=== PATIENT | male | born 1960 | race Two or more races ===

== ENCOUNTER 2020-06-23 16:55 | Inpatient (IN) | payer MEDICAID, OTHER ==
[~2020-06-23] VITALS: Ht 162.6 cm; Wt 73.0 kg
--- NOTE | 2020-06-23 16:57 | NUR ---
PT BROUGHT IN BY [facility] FROM DIALYSIS DUE TO IRREGULAR HEART RATE AND CHEST TIGHTNESS DURING TREATMENT.
--- NOTE | 2020-06-23 17:07 | NUR ---
ERMD LAW AT BEDSIDE FOR EVAL
--- NOTE | 2020-06-23 17:39 | NUR ---
Pt resting in bed, call light in reach.
--- NOTE | 2020-06-23 17:58 | NUR ---
REPORT RECEIVED FROM RN
[2020-06-23 17:59] LABS: BASOPHILS # (AUTO) 0.02 x10^3/uL (0-0.1); BASOPHILS % (AUTO) 0 % (0-1); EOSINOPHILS # (AUTO) 0.36 x10^3/uL (0-0.4); EOSINOPHILS % (AUTO) 5 % (1-7); LYMPHOCYTES # (AUTO) 1.46 x10^3/uL (1-3.4); LYMPHOCYTES % (AUTO) 20 % (22-44); MD NO; MEAN CORPUSCULAR HEMOGLOBIN 31.9 pg (27.5-34.5); MEAN CORPUSCULAR HGB CONC 32.8 g/dL (33.2-36.2); MEAN PLATELET VOLUME 9.5 fL (7.4-10.4); MONOCYTES # (AUTO) 0.62 x10^3/uL (0.2-0.8); MONOCYTES % (AUTO) 8 % (2-9); NEUTROPHILS # (AUTO) 4.95 x10^3/uL (1.8-6.8); NEUTROPHILS % (AUTO) 67 % (42-75); PLATELET COUNT 239 x10^3/uL (130-400); RED BLOOD COUNT 3.26 x10^6/uL (4.38-5.82)
[2020-06-23 18:06] LABS: ALBUMIN 3.5 g/dL (3.4-5.0); ANION GAP 11 mmol/L (5-15); CALCIUM 8.8 mg/dL (8.5-10.1); CHLORIDE 100 mmol/L (98-107)
[2020-06-23 18:12] LABS: ALANINE AMINOTRANSFERASE 19 U/L (12-78); ALKALINE PHOSPHATASE 67 U/L (45-117); BILIRUBIN,TOTAL 0.4 mg/dL (0.2-1.0); TOTAL PROTEIN 6.6 g/dL (6.4-8.2); TROPONIN I < 0.015 ng/mL (0.000-0.045)
[2020-06-23] MEDS ORDERED: morphine SULFATE 10 MG/ML, 1ML IV PRN (19:30)
[2020-06-23] MEDS ORDERED: PLEASE ENTER ALLERGIES MC SCH (19:30)
[2020-06-23] MEDS ORDERED: NITROGLYCERIN 0.4 MG BOTTLE (25 TABS) SL PRN (19:30)
[2020-06-23 19:47] LABS: TROPONIN I 0.018 ng/mL (0.000-0.045)
[2020-06-23 20:14] VITALS: BP 170/90
[2020-06-23] MEDS ORDERED: OMEP10CA5 PO (20:19)
[2020-06-23] MEDS ORDERED: AMLO-150 PO (20:19)
[2020-06-23] MEDS ORDERED: ASPI81TA45 PO (20:19)
[2020-06-23] MEDS ORDERED: LOSA25TA25 PO (20:19)
[2020-06-23] MEDS ORDERED: ATOR20TA37 PO (20:19)
[2020-06-23] MEDS ORDERED: INSU100V8 SQ (20:23)
[2020-06-23] MEDS ORDERED: INSU100C SQ-INSULIN (20:23)
[2020-06-23] MEDS: ATORVASTATIN 20 MG TABLET PO SCH (21:52)
[2020-06-23] MEDS: LOSARTAN 25MG TABLET PO SCH (21:52)
[2020-06-23] MEDS: AMLODIPINE 5 MG TABLET PO SCH (21:52)
[2020-06-23] MEDS: INSULIN GLARGINE 100 UNITS/ML, PEN SQ-INSULIN SCH (21:53)
[2020-06-23] MEDS: INSULIN LISPRO 100 UNITS/ML, PEN SQ-INSULIN SCH (21:53)
[2020-06-24 00:29] VITALS: BP 164/86
[2020-06-24 01:29] LABS: TROPONIN I 0.017 ng/mL (0.000-0.045)
[2020-06-24] MEDS ORDERED: INSULIN LISPRO 100 UNIT/ML, 3ML VIAL SQ-INSULIN ONE (04:00)
[2020-06-24 04:22] LABS: BASOPHILS # (AUTO) 0.03 x10^3/uL (0-0.1); BASOPHILS % (AUTO) 1 % (0-1); EOSINOPHILS # (AUTO) 0.28 x10^3/uL (0-0.4); EOSINOPHILS % (AUTO) 4 % (1-7); LYMPHOCYTES % (AUTO) 21 % (22-44); MD NO; MEAN CORPUSCULAR HEMOGLOBIN 31.4 pg (27.5-34.5); MEAN CORPUSCULAR HGB CONC 32.1 g/dL (33.2-36.2); MEAN PLATELET VOLUME 9.6 fL (7.4-10.4); MONOCYTES # (AUTO) 0.53 x10^3/uL (0.2-0.8); MONOCYTES % (AUTO) 7 % (2-9); NEUTROPHILS % (AUTO) 68 % (42-75); PLATELET COUNT 237 x10^3/uL (130-400); RED CELL DISTRIBUTION WIDTH 14.2 % (9.4-14.8)
[2020-06-24 04:24] LABS: ANION GAP 12 mmol/L (5-15); CALCIUM 8.4 mg/dL (8.5-10.1); CHLORIDE 97 mmol/L (98-107)
[2020-06-24 04:29] LABS: CHOL/HDL RATIO 2.5; CHOLESTEROL, TOTAL 108 mg/dL (140-239); CREATININE 9.36 mg/dL (0.7-1.3); HDL CHOL % 40 % (26-37); HDL CHOLESTEROL (DIRECT) 43 mg/dL (40-60); LDL CHOLESTEROL,CALCULATED 41 mg/dL (54-169); TRIGLYCERIDES 122 mg/dL (50-200); VLDL CHOLESTEROL 24 mg/dL (0-25)
[2020-06-24] MEDS: ASPIRIN 81 MG TABLET EC PO SCH (05:16)
[2020-06-24] MEDS: OMEPRAZOLE 10 MG CAPSULE.DR PO SCH (05:16)
[2020-06-24] MEDS: LOSARTAN 25MG TABLET PO SCH ×2 (08:16→21:29)
[2020-06-24] MEDS: AMLODIPINE 5 MG TABLET PO SCH ×2 (08:16→21:29)
[2020-06-24] MEDS: INSULIN LISPRO 100 UNITS/ML, PEN SQ-INSULIN SCH ×4 (08:16→21:18)
[2020-06-24 08:25] VITALS: BP 165/86
[2020-06-24] MEDS: ARANESP 100 MCG/ML **ESRD SQ SCH (10:10)
[2020-06-24 14:05] VITALS: BP 129/73
[2020-06-24 19:47] VITALS: BP 176/90
[2020-06-24] MEDS ORDERED: AMLODIPINE 5 MG TABLET PO SCH (21:00)
[2020-06-24] MEDS ORDERED: INSULIN REGULAR 100 UNITS/ML, 3ML VIAL IVPush ONE (21:00)
[2020-06-24 21:16] LABS: ANION GAP 11 mmol/L (5-15); CALCIUM 8.3 mg/dL (8.5-10.1); CHLORIDE 95 mmol/L (98-107); CREATININE 6.67 mg/dL (0.7-1.3)
[2020-06-24 21:29] VITALS: BP 161/80
[2020-06-24] MEDS: INSULIN GLARGINE 100 UNITS/ML, PEN SQ-INSULIN SCH (21:29)
[2020-06-24] MEDS: ATORVASTATIN 20 MG TABLET PO SCH (21:29)
[2020-06-25] MEDS ORDERED: INSULIN INFUSION FOR ICU PROTOCOL XX PRN
[2020-06-25] MEDS ORDERED: SODIUM CHLORIDE 0.9%, 500ML IVBOLUS ONE
[2020-06-25] MEDS ORDERED: INSULIN REGULAR 100 UNITS/ML, 3ML VIAL IV ONE (00:30)
[2020-06-25] MEDS ORDERED: REGULAR INSULIN 100 UNITS in SODIUM CHLORIDE 0.9% 99 ML IV PRN ×2 (00:30)
[2020-06-25 01:52] LABS: ANION GAP 9 mmol/L (5-15); CALCIUM 8.2 mg/dL (8.5-10.1); CHLORIDE 95 mmol/L (98-107); CREATININE 7.37 mg/dL (0.7-1.3)
[2020-06-25] MEDS: OMEPRAZOLE 10 MG CAPSULE.DR PO SCH (06:00)
[2020-06-25] MEDS: ASPIRIN 81 MG TABLET EC PO SCH (06:37)
[2020-06-25] MEDS: INSULIN LISPRO 100 UNITS/ML, PEN SQ-INSULIN SCH ×6 (06:37→23:02)
[2020-06-25 06:46] LABS: BASOPHILS # (AUTO) 0.02 x10^3/uL (0-0.1); BASOPHILS % (AUTO) 0 % (0-1); EOSINOPHILS # (AUTO) 0.31 x10^3/uL (0-0.4); EOSINOPHILS % (AUTO) 5 % (1-7); LYMPHOCYTES # (AUTO) 1.27 x10^3/uL (1-3.4); LYMPHOCYTES % (AUTO) 21 % (22-44); MD NO; MEAN CORPUSCULAR HEMOGLOBIN 32.3 pg (27.5-34.5); MEAN CORPUSCULAR HGB CONC 33.7 g/dL (33.2-36.2); MEAN PLATELET VOLUME 9.2 fL (7.4-10.4); MONOCYTES # (AUTO) 0.68 x10^3/uL (0.2-0.8); MONOCYTES % (AUTO) 11 % (2-9); NEUTROPHILS # (AUTO) 3.86 x10^3/uL (1.8-6.8); NEUTROPHILS % (AUTO) 63 % (42-75); PLATELET COUNT 253 x10^3/uL (130-400); RED BLOOD COUNT 3.43 x10^6/uL (4.38-5.82); RED CELL DISTRIBUTION WIDTH 13.7 % (9.4-14.8)
[2020-06-25 06:59] LABS: ANION GAP 11 mmol/L (5-15); CALCIUM 9.1 mg/dL (8.5-10.1); CHLORIDE 104 mmol/L (98-107); CREATININE 7.83 mg/dL (0.7-1.3)
[2020-06-25] MEDS: AMLODIPINE 5 MG TABLET PO SCH ×2 (07:56→20:30)
[2020-06-25] MEDS: LOSARTAN 25MG TABLET PO SCH ×2 (07:56→20:30)
[2020-06-25] MEDS: SODIUM CHLORIDE 0.9% 1,000 ML IV SCH ×2 (07:58→18:07)
[2020-06-25 08:00] VITALS: BP 124/55
[2020-06-25 10:15] VITALS: BP 124/55
[2020-06-25 14:06] VITALS: BP 130/60
[2020-06-25 19:44] VITALS: BP 139/53
[2020-06-25] MEDS: ATORVASTATIN 20 MG TABLET PO SCH (20:30)
[2020-06-25] MEDS: INSULIN GLARGINE 100 UNITS/ML, PEN SQ-INSULIN SCH (20:35)
[2020-06-26 00:12] VITALS: BP 138/61
[2020-06-26] MEDS: INSULIN LISPRO 100 UNITS/ML, PEN SQ-INSULIN SCH ×5 (03:00→20:52)
[2020-06-26] MEDS: SODIUM CHLORIDE 0.9% 1,000 ML IV SCH (03:00)
[2020-06-26] MEDS: OMEPRAZOLE 10 MG CAPSULE.DR PO SCH (06:00)
[2020-06-26] MEDS: ASPIRIN 81 MG TABLET EC PO SCH (06:00)
[2020-06-26] MEDS: AMLODIPINE 5 MG TABLET PO SCH ×2 (07:45→20:53)
[2020-06-26] MEDS: LOSARTAN 25MG TABLET PO SCH ×2 (07:45→20:53)
[2020-06-26] MEDS: DEXTROSE 50%, 50ML SYRINGE IV PRN (08:09)
[2020-06-26] MEDS: INSULIN GLARGINE 100 UNITS/ML, PEN SQ-INSULIN SCH ×2 (08:11→20:53)
[2020-06-26 08:12] VITALS: BP 122/79
[2020-06-26] MEDS ORDERED: REGADENOSON 0.4 MG/5 ML SYRINGE ONE (08:53)
[2020-06-26 16:40] VITALS: BP 158/80
[2020-06-26 20:42] VITALS: BP 152/87
[2020-06-26] MEDS: ATORVASTATIN 20 MG TABLET PO SCH (20:53)
[2020-06-26] MEDS: ACETAMINOPHEN 325 MG TABLET PO PRN (21:18)
[2020-06-27 00:31] VITALS: BP 153/90
[2020-06-27] MEDS ORDERED: SODIUM CHLORIDE 0.9%, 500ML IVBOLUS ONE (01:00)
[2020-06-27] MEDS ORDERED: INSULIN LISPRO 100 UNIT/ML, 3ML VIAL SQ-INSULIN ONE ×3 (01:00→15:30)
[2020-06-27 01:23] LABS: ANION GAP 10 mmol/L (5-15); CALCIUM 8.4 mg/dL (8.5-10.1); CHLORIDE 95 mmol/L (98-107); CREATININE 6.32 mg/dL (0.7-1.3)
[2020-06-27 05:00] LABS: ANION GAP 7 mmol/L (5-15); CALCIUM 8.4 mg/dL (8.5-10.1); CHLORIDE 99 mmol/L (98-107)
[2020-06-27 05:03] LABS: CREATININE 6.61 mg/dL (0.7-1.3)
[2020-06-27] MEDS: OMEPRAZOLE 10 MG CAPSULE.DR PO SCH (06:14)
[2020-06-27] MEDS: ASPIRIN 81 MG TABLET EC PO SCH (06:14)
[2020-06-27 06:40] VITALS: BP 134/67
[2020-06-27] MEDS: INSULIN LISPRO 100 UNITS/ML, PEN SQ-INSULIN SCH ×2 (08:01→20:53)
[2020-06-27] MEDS: INSULIN GLARGINE 100 UNITS/ML, PEN SQ-INSULIN SCH (08:01)
[2020-06-27] MEDS: LOSARTAN 25MG TABLET PO SCH ×2 (08:02→20:48)
[2020-06-27] MEDS: AMLODIPINE 5 MG TABLET PO SCH ×2 (08:02→20:48)
[2020-06-27 12:06] VITALS: BP 160/78
[2020-06-27] MEDS ORDERED: INSULIN GLARGINE 100 UNITS/ML, PEN SQ-INSULIN ONE (13:00)
[2020-06-27] MEDS: SODIUM CHLORIDE 0.9% 1,000 ML IV SCH (13:14)
[2020-06-27] MEDS: INSULIN LISPRO 100 UNIT/ML, 3ML VIAL SQ-INSULIN SCH (15:16)
[2020-06-27] MEDS ORDERED: INSULIN LISPRO 100 UNITS/ML, PEN SQ-INSULIN SCH (15:30)
[2020-06-27 18:12] LABS: CALCIUM 7.9 mg/dL (8.5-10.1); CHLORIDE 94 mmol/L (98-107)
[2020-06-27 18:18] LABS: ANION GAP 9 mmol/L (5-15); CREATININE 7.92 mg/dL (0.7-1.3)
[2020-06-27 19:17] LABS: ANION GAP 8 mmol/L (5-15); CALCIUM 7.8 mg/dL (8.5-10.1); CHLORIDE 97 mmol/L (98-107); CREATININE 7.94 mg/dL (0.7-1.3)
[2020-06-27 20:06] VITALS: BP 169/78
[2020-06-27] MEDS: ATORVASTATIN 20 MG TABLET PO SCH (20:48)
[2020-06-27] MEDS ORDERED: SODIUM CHLORIDE 0.9% 1,000ML IVBOLUS ONE (21:00)
[2020-06-27] MEDS ORDERED: INSULIN GLARGINE 100 UNITS/ML, PEN SQ-INSULIN SCH ×2 (21:00)
[2020-06-27 21:48] VITALS: BP 181/79
[2020-06-27 22:31] VITALS: BP 183/88
[2020-06-28] MEDS: INSULIN LISPRO 100 UNITS/ML, PEN SQ-INSULIN SCH ×7 (00:02→23:00)
[2020-06-28 00:06] VITALS: BP 154/66
[2020-06-28] MEDS: SODIUM CHLORIDE 0.9% 1,000 ML IV SCH ×4 (00:16→23:11)
[2020-06-28 04:28] LABS: ANION GAP 12 mmol/L (5-15); CALCIUM 8.5 mg/dL (8.5-10.1); CHLORIDE 104 mmol/L (98-107); CREATININE 8.24 mg/dL (0.7-1.3)
[2020-06-28 05:06] LABS: BASOPHILS % (AUTO) 1 % (0-1); EOSINOPHILS % (AUTO) 4 % (1-7); LYMPHOCYTES % (AUTO) 37 % (22-44); MEAN CORPUSCULAR HEMOGLOBIN 31.8 pg (27.5-34.5); MEAN CORPUSCULAR HGB CONC 33.4 g/dL (33.2-36.2); MEAN PLATELET VOLUME 10.1 fL (7.4-10.4); MONOCYTES % (AUTO) 10 % (2-9); NEUTROPHILS % (AUTO) 49 % (42-75); PLATELET COUNT 229 x10^3/uL (130-400); RED BLOOD COUNT 3.15 x10^6/uL (4.38-5.82); RED CELL DISTRIBUTION WIDTH 13.7 % (9.4-14.8)
[2020-06-28 05:25] LABS: MD NO
[2020-06-28] MEDS: ASPIRIN 81 MG TABLET EC PO SCH (05:28)
[2020-06-28] MEDS: OMEPRAZOLE 10 MG CAPSULE.DR PO SCH (05:28)
[2020-06-28 06:36] VITALS: BP 118/83
[2020-06-28] MEDS: INSULIN LISPRO 100 UNIT/ML, 3ML VIAL SQ-INSULIN SCH ×3 (07:00→16:00)
[2020-06-28] MEDS ORDERED: INSULIN GLARGINE 100 UNITS/ML, PEN SQ-INSULIN SCH (09:00)
[2020-06-28] MEDS: AMLODIPINE 5 MG TABLET PO SCH ×2 (09:25→20:43)
[2020-06-28] MEDS: LOSARTAN 25MG TABLET PO SCH ×2 (09:25→20:43)
[2020-06-28 13:27] VITALS: BP 168/79
[2020-06-28 19:57] VITALS: BP 167/101
[2020-06-28] MEDS: ATORVASTATIN 20 MG TABLET PO SCH (20:43)
[2020-06-28] MEDS: INSULIN GLARGINE 100 UNITS/ML, PEN SQ-INSULIN SCH (20:44)
[2020-06-28 23:05] VITALS: BP 159/84
[2020-06-28] MEDS: ACETAMINOPHEN 325 MG TABLET PO PRN (23:07)
[2020-06-29] VITALS (7 sets, daily range): BP systolic 151–177; BP diastolic 67–94
[2020-06-29] MEDS: INSULIN LISPRO 100 UNITS/ML, PEN SQ-INSULIN SCH ×5 (03:00→22:16)
[2020-06-29] MEDS: ASPIRIN 81 MG TABLET EC PO SCH (06:14)
[2020-06-29] MEDS: OMEPRAZOLE 10 MG CAPSULE.DR PO SCH (06:14)
[2020-06-29] MEDS: SODIUM CHLORIDE 0.9% 1,000 ML IV SCH ×3 (06:15→20:45)
[2020-06-29] MEDS: INSULIN LISPRO 100 UNIT/ML, 3ML VIAL SQ-INSULIN SCH ×2 (07:00→11:00)
[2020-06-29] MEDS: AMLODIPINE 5 MG TABLET PO SCH ×2 (08:25→20:43)
[2020-06-29] MEDS: LOSARTAN 25MG TABLET PO SCH ×2 (08:25→20:43)
[2020-06-29] MEDS: ATORVASTATIN 20 MG TABLET PO SCH (20:43)
[2020-06-29] MEDS: INSULIN GLARGINE 100 UNITS/ML, PEN SQ-INSULIN SCH (22:16)
[2020-06-30 00:44] VITALS: BP 160/76
[2020-06-30] MEDS: INSULIN LISPRO 100 UNITS/ML, PEN SQ-INSULIN SCH ×6 (02:33→21:23)
[2020-06-30] MEDS: OMEPRAZOLE 10 MG CAPSULE.DR PO SCH (06:23)
[2020-06-30] MEDS: ASPIRIN 81 MG TABLET EC PO SCH (06:23)
[2020-06-30] MEDS: SODIUM CHLORIDE 0.9% 1,000 ML IV SCH ×2 (06:24→14:07)
[2020-06-30 07:03] VITALS: BP 134/78
[2020-06-30] MEDS ORDERED: INSULIN GLARGINE 100 UNITS/ML, PEN SQ-INSULIN SCH (09:00)
[2020-06-30 12:25] VITALS: BP 164/71
[2020-06-30] MEDS: LACTOBACILLUS CHEW TABLET PO SCH ×3 (12:43→21:21)
[2020-06-30] MEDS: LOSARTAN 25MG TABLET PO SCH ×2 (12:43→21:22)
[2020-06-30] MEDS: CARVEDILOL 6.25 MG TABLET PO SCH (18:00)
[2020-06-30 18:18] VITALS: BP 154/76
[2020-06-30 20:07] VITALS: BP 148/78
[2020-06-30] MEDS: ATORVASTATIN 20 MG TABLET PO SCH (21:22)
[2020-06-30] MEDS: INSULIN GLARGINE 100 UNITS/ML, PEN SQ-INSULIN SCH (21:23)
[2020-07-01] VITALS (7 sets, daily range): BP systolic 148–209; BP diastolic 66–101
[2020-07-01] MEDS: ACETAMINOPHEN 325 MG TABLET PO PRN ×2 (00:02→22:11)
[2020-07-01] MEDS: OMEPRAZOLE 10 MG CAPSULE.DR PO SCH (05:28)
[2020-07-01] MEDS: ASPIRIN 81 MG TABLET EC PO SCH (05:29)
[2020-07-01] MEDS: CARVEDILOL 6.25 MG TABLET PO SCH ×2 (05:29→17:32)
[2020-07-01 06:00] LABS: % IRON SATURATION 22 % (20-55); IRON LEVEL 51 mcg/dL (65-175); TOTAL IRON BINDING CAPACITY 228 mcg/dL (250-450)
[2020-07-01] MEDS: INSULIN LISPRO 100 UNITS/ML, PEN SQ-INSULIN SCH ×4 (07:00→21:50)
[2020-07-01] MEDS: ARANESP 100 MCG/ML **ESRD SQ SCH (08:38)
[2020-07-01] MEDS: LOSARTAN 25MG TABLET PO SCH ×2 (08:38→21:38)
[2020-07-01] MEDS: LACTOBACILLUS CHEW TABLET PO SCH ×3 (08:38→21:38)
[2020-07-01] MEDS ORDERED: NITROGLYCERIN 0.1 MG/HR PATCH TD PRN (17:00)
[2020-07-01] MEDS ORDERED: hydrALAzine 20 MG/ML, 1ML IV PRN (17:00)
[2020-07-01] MEDS: ISOSORBIDE DINITRATE 10 MG TABLET PO SCH ×2 (17:32→21:39)
[2020-07-01] MEDS: ATORVASTATIN 20 MG TABLET PO SCH (21:38)
[2020-07-02 02:07] VITALS: BP 155/74
[2020-07-02] MEDS: OMEPRAZOLE 10 MG CAPSULE.DR PO SCH (06:00)
[2020-07-02] MEDS: ASPIRIN 81 MG TABLET EC PO SCH (06:00)
[2020-07-02] MEDS: CARVEDILOL 6.25 MG TABLET PO SCH ×2 (06:03→17:55)
[2020-07-02] MEDS: INSULIN LISPRO 100 UNITS/ML, PEN SQ-INSULIN SCH ×4 (07:00→21:27)
[2020-07-02] MEDS: LACTOBACILLUS CHEW TABLET PO SCH ×3 (08:42→20:57)
[2020-07-02] MEDS: ISOSORBIDE DINITRATE 10 MG TABLET PO SCH ×3 (08:42→20:58)
[2020-07-02] MEDS: LOSARTAN 25MG TABLET PO SCH ×2 (08:42→20:58)
[2020-07-02 08:46] VITALS: BP 163/82
[2020-07-02] MEDS ORDERED: INSULIN GLARGINE 100 UNITS/ML, PEN SQ-INSULIN SCH (09:00)
[2020-07-02] MEDS: INSULIN NPH HUMAN 100 UNIT/ML, 3ML VIAL SQ-INSULIN SCH (09:00)
[2020-07-02] MEDS: ACETAMINOPHEN 325 MG TABLET PO PRN (09:22)
[2020-07-02] MEDS ORDERED: BUPIVACAINE/PF 0.5% ONE (09:28)
[2020-07-02] MEDS ORDERED: HEPARIN 1,000 UNITS/ML, 10ML ONE (09:28)
[2020-07-02] MEDS ORDERED: EPINEPHRINE 1 MG/ML, 1ML ONE (09:28)
[2020-07-02] MEDS ORDERED: PROTAMINE SULFATE 10 MG/ML, 5ML ONE (09:28)
[2020-07-02] MEDS ORDERED: THROMBIN 20,000 UNIT VIAL TP ONE (09:28)
[2020-07-02] MEDS ORDERED: EPHEDRINE 50 MG/ML, 1ML ONE (09:51)
[2020-07-02] MEDS ORDERED: ONDANSETRON 2MG/ML, 2ML ONE (09:51)
[2020-07-02] MEDS ORDERED: PROPOFOL 10 MG/ML, 20ML ONE (09:51)
[2020-07-02] MEDS ORDERED: CEFAZOLIN 1,000 MG ONE (09:51)
[2020-07-02] MEDS ORDERED: SUCCINYLCHOLINE 20 MG/ML, 10ML ONE (09:51)
[2020-07-02] MEDS ORDERED: FENTANYL PF 250 MCG/5ML ONE (09:58)
[2020-07-02] MEDS ORDERED: BUPIVACAINE/PF-EPI 0.5% 1:200K IM ONE (10:22)
[2020-07-02] MEDS ORDERED: FENTANYL PF 100 MCG/2ML IV PRN (11:30)
[2020-07-02] MEDS ORDERED: OXYcodone 5 MG/5 ML ORAL.SOL UDC PO PRN (11:30)
[2020-07-02] MEDS ORDERED: EPHEDRINE 50 MG/ML, 1ML IVPush PRN (11:30)
[2020-07-02] MEDS ORDERED: hydrALAzine 20 MG/ML, 1ML IV PRN (11:30)
[2020-07-02] MEDS ORDERED: ONDANSETRON 2MG/ML, 2ML IVPush PRN (11:30)
[2020-07-02] MEDS ORDERED: HYDROmorphone 1 MG/ML, 1ML INJ IVPush PRN (11:30)
[2020-07-02] MEDS ORDERED: PROMETHAZINE 25 MG SUPP PR PRN (11:30)
[2020-07-02] MEDS ORDERED: ACETAMINOPHEN 325 MG TABLET PO PRN (11:30)
[2020-07-02 12:00] VITALS: BP 173/85
[2020-07-02] MEDS: OXYcodone IR 5MG TABLET PO PRN (15:37)
[2020-07-02 15:38] VITALS: BP 167/81
[2020-07-02 20:52] VITALS: BP 178/82
[2020-07-02] MEDS: ATORVASTATIN 20 MG TABLET PO SCH (20:57)
[2020-07-02 23:49] VITALS: BP 187/84
[2020-07-03 02:50] VITALS: BP 175/80
[2020-07-03] MEDS ORDERED: LABETALOL 5MG/ML, 20ML IVPush PRN (03:30)
[2020-07-03 05:37] VITALS: BP 186/82
[2020-07-03] MEDS: CARVEDILOL 6.25 MG TABLET PO SCH ×2 (05:39→21:10)
[2020-07-03] MEDS: ASPIRIN 81 MG TABLET EC PO SCH (05:39)
[2020-07-03] MEDS: OMEPRAZOLE 10 MG CAPSULE.DR PO SCH (05:39)
[2020-07-03] MEDS: OXYcodone IR 5MG TABLET PO PRN (05:39)
[2020-07-03 05:53] LABS: ANION GAP 12 mmol/L (5-15); CALCIUM 8.4 mg/dL (8.5-10.1); CHLORIDE 101 mmol/L (98-107)
[2020-07-03 07:08] VITALS: BP 174/86
[2020-07-03] MEDS: INSULIN NPH HUMAN 100 UNIT/ML, 3ML VIAL SQ-INSULIN SCH (08:44)
[2020-07-03] MEDS: LOSARTAN 25MG TABLET PO SCH ×2 (08:45→21:11)
[2020-07-03] MEDS: LACTOBACILLUS CHEW TABLET PO SCH ×3 (08:45→21:11)
[2020-07-03] MEDS: ISOSORBIDE DINITRATE 20 MG TABLET PO SCH ×3 (09:00→21:11)
[2020-07-03] MEDS ORDERED: ISOSORBIDE DINITRATE 10 MG TABLET PO SCH (09:00)
[2020-07-03] MEDS: HEPARIN 5,000 UNITS/ML, 1ML SQ SCH ×2 (09:03→17:37)
[2020-07-03] MEDS: ACETAMINOPHEN 325 MG TABLET PO PRN (09:54)
[2020-07-03] MEDS ORDERED: INSULIN LISPRO 100 UNITS/ML, PEN SQ-INSULIN SCH (11:00)
[2020-07-03] MEDS: INSULIN LISPRO 100 UNITS/ML, PEN SQ-INSULIN SCH ×3 (11:25→21:22)
[2020-07-03 12:04] VITALS: BP 156/72
[2020-07-03 20:12] VITALS: BP 191/97
[2020-07-03] MEDS: ATORVASTATIN 20 MG TABLET PO SCH (21:10)
[2020-07-04 00:29] VITALS: BP 179/93
[2020-07-04] MEDS: OXYcodone IR 5MG TABLET PO PRN (00:32)
[2020-07-04 01:44] VITALS: BP 155/72
[2020-07-04] MEDS: HEPARIN 5,000 UNITS/ML, 1ML SQ SCH ×3 (01:44→18:05)
[2020-07-04 06:28] LABS: BASOPHILS % (AUTO) 1 % (0-1); EOSINOPHILS % (AUTO) 2 % (1-7); LYMPHOCYTES % (AUTO) 21 % (22-44); MEAN CORPUSCULAR HEMOGLOBIN 32.6 pg (27.5-34.5); MEAN CORPUSCULAR HGB CONC 33.6 g/dL (33.2-36.2); MEAN PLATELET VOLUME 9.5 fL (7.4-10.4); MONOCYTES % (AUTO) 11 % (2-9); NEUTROPHILS % (AUTO) 66 % (42-75); PLATELET COUNT 207 x10^3/uL (130-400); RED BLOOD COUNT 2.93 x10^6/uL (4.38-5.82); RED CELL DISTRIBUTION WIDTH 14.8 % (9.4-14.8)
[2020-07-04 06:35] LABS: ANION GAP 9 mmol/L (5-15); CALCIUM 8.2 mg/dL (8.5-10.1); CHLORIDE 98 mmol/L (98-107); CREATININE 6.41 mg/dL (0.7-1.3)
[2020-07-04 06:39] LABS: MD NO
[2020-07-04] MEDS: OMEPRAZOLE 10 MG CAPSULE.DR PO SCH (06:42)
[2020-07-04] MEDS: ASPIRIN 81 MG TABLET EC PO SCH (06:42)
[2020-07-04] MEDS: CARVEDILOL 6.25 MG TABLET PO SCH (06:42)
[2020-07-04] MEDS: INSULIN LISPRO 100 UNITS/ML, PEN SQ-INSULIN SCH ×4 (06:55→20:39)
[2020-07-04 07:00] VITALS: BP 176/87
[2020-07-04] MEDS: LACTOBACILLUS CHEW TABLET PO SCH ×3 (08:32→20:37)
[2020-07-04] MEDS: LOSARTAN 25MG TABLET PO SCH ×2 (08:32→20:38)
[2020-07-04] MEDS: ISOSORBIDE DINITRATE 20 MG TABLET PO SCH ×3 (08:32→20:37)
[2020-07-04] MEDS: INSULIN NPH HUMAN 100 UNIT/ML, 3ML VIAL SQ-INSULIN SCH (08:33)
[2020-07-04] MEDS: DOCUSATE 100 MG CAPSULE PO PRN (08:37)
[2020-07-04] MEDS ORDERED: INSULIN NPH HUMAN 100 UNIT/ML, 3ML VIAL SQ-INSULIN SCH (09:00)
[2020-07-04 10:00] VITALS: BP 140/75
[2020-07-04] MEDS: AMLODIPINE 5 MG TABLET PO SCH (11:04)
[2020-07-04 13:20] VITALS: BP 147/68
[2020-07-04] MEDS: DEXTROSE 50%, 50ML SYRINGE IV PRN ×2 (17:43→18:06)
[2020-07-04] MEDS: CARVEDILOL 12.5 MG TABLET PO SCH (18:04)
[2020-07-04] MEDS: ACETAMINOPHEN 325 MG TABLET PO PRN (18:04)
[2020-07-04] MEDS ORDERED: GLUCAGON 1 MG IM PRN (19:00)
[2020-07-04] MEDS ORDERED: DEXTROSE 4 GM TAB.CHEW PO PRN (19:00)
[2020-07-04 20:32] VITALS: BP 155/88
[2020-07-04] MEDS: ATORVASTATIN 20 MG TABLET PO SCH (20:37)
[2020-07-04] MEDS: SODIUM CHLORIDE FLUSH 10ML SYR IVF SCH (20:40)
[2020-07-04] MEDS ORDERED: ONDANSETRON 4 MG TABLET PO PRN (22:30)
[2020-07-04] MEDS ORDERED: ONDANSETRON ODT 4 MG ONE (22:39)
[2020-07-05] MEDS: HEPARIN 5,000 UNITS/ML, 1ML SQ SCH ×3 (02:00→17:54)
[2020-07-05 02:55] VITALS: BP 157/77
[2020-07-05] MEDS: ASPIRIN 81 MG TABLET EC PO SCH (06:23)
[2020-07-05] MEDS: CARVEDILOL 12.5 MG TABLET PO SCH ×2 (06:23→17:54)
[2020-07-05] MEDS: OMEPRAZOLE 10 MG CAPSULE.DR PO SCH (06:23)
[2020-07-05 06:24] VITALS: BP 161/80
[2020-07-05 07:36] VITALS: BP 147/74
[2020-07-05] MEDS: SODIUM CHLORIDE FLUSH 10ML SYR IVF SCH (08:25)
[2020-07-05] MEDS: ISOSORBIDE DINITRATE 20 MG TABLET PO SCH ×2 (08:25→16:00)
[2020-07-05] MEDS: INSULIN LISPRO 100 UNITS/ML, PEN SQ-INSULIN SCH ×3 (08:25→16:24)
[2020-07-05] MEDS: LACTOBACILLUS CHEW TABLET PO SCH ×2 (08:25→16:00)
[2020-07-05] MEDS: LOSARTAN 25MG TABLET PO SCH (08:26)
[2020-07-05] MEDS: AMLODIPINE 5 MG TABLET PO SCH (08:26)
[2020-07-05] MEDS: DOCUSATE 100 MG CAPSULE PO PRN ×2 (08:58→13:34)
[2020-07-05] MEDS ORDERED: INSULIN NPH HUMAN 100 UNIT/ML, 3ML VIAL SQ-INSULIN SCH (09:00)
[2020-07-05 13:37] VITALS: BP 185/89
[2020-07-05 15:35] VITALS: BP 149/84
[2020-07-05] MEDS: ACETAMINOPHEN 325 MG TABLET PO PRN (16:28)
[2020-07-05] MEDS ORDERED: ISOS20TA58 PO (17:40)
[2020-07-05] MEDS ORDERED: CARV12.52 PO (17:40)
== END 2020-07-05 18:31 | disposition home or self-care (01) | DRG 405 ==
LOC: ED 19:34 → EDIP 19:49 → 5SO 20:08 → CCU 06-25 01:17 → 5SO 06-26 07:56 → OBSVTOIN 06-26 15:52 → 3N 06-27 23:16 → 5SO 06-29 04:15
PROVIDERS: ADMIT Family Medicine; ATTEND Family Medicine
PROC: 5A1D70Z Performance of Urinary Filtration, Intermittent, Less than 6 Hours Per Day (ICD-10-PCS; 2020-06-24)
PROC: 5A1D70Z Performance of Urinary Filtration, Intermittent, Less than 6 Hours Per Day (ICD-10-PCS; 2020-06-26)
PROC: 5A1D70Z Performance of Urinary Filtration, Intermittent, Less than 6 Hours Per Day (ICD-10-PCS; 2020-06-28)
PROC: 03170ZD Bypass Right Brachial Artery to Upper Arm Vein, Open Approach (ICD-10-PCS; principal; 2020-07-02 11:00)
DX: E11.00 Type 2 diabetes mellitus with hyperosmolarity without nonketotic hyperglycemic-hyperosmolar coma (NKHHC) (principal); E11.649 Type 2 diabetes mellitus with hypoglycemia without coma; E11.22 Type 2 diabetes mellitus with diabetic chronic kidney disease; N18.6 End stage renal disease; I12.0 Hypertensive chronic kidney disease with stage 5 chronic kidney disease or end stage renal disease; G47.00 Insomnia, unspecified; E87.5 Hyperkalemia; E87.1 Hypo-osmolality and hyponatremia; D63.1 Anemia in chronic kidney disease; Z99.2 Dependence on renal dialysis; Z79.4 Long term (current) use of insulin; Z79.899 Other long term (current) drug therapy
CPT/HCPCS: 36415; 71045; 78452; 80048; 80053; 80061; 82947; 82950; 82962; 83036; 83540; 83550; 83735; 84484; 85025; 86705; 86706; 87081; 87340; 87635; 90935; 93005; 93017; 93306; 96372; 99285; G0378; J0171; J0690; J0882; J1644; J1815; J2405; J2704; J2720; J2785; J3010; Q0162; A9502; G0365; J0330; J7030; J7040

== ENCOUNTER 2020-07-13 11:59 | Emergency (ER) | payer MEDICAID ==
[~2020-07-13] VITALS: Ht 162.6 cm; Wt 64.8 kg
[~2020-07-13 11:59] MED LIST: AMLO-150 PO; ASPI81TA45 PO; ATOR20TA37 PO; CARV12.52 PO; INSU100C SQ-INSULIN; INSU100V8 SQ; ISOS20TA58 PO; LOSA25TA25 PO; OMEP10CA5 PO
[2020-07-13 12:50] LABS: BASOPHILS % (AUTO) 1 % (0-1); EOSINOPHILS % (AUTO) 2 % (1-7); LYMPHOCYTES % (AUTO) 23 % (22-44); MEAN CORPUSCULAR HEMOGLOBIN 31.9 pg (27.5-34.5); MEAN CORPUSCULAR HGB CONC 32.4 g/dL (33.2-36.2); MEAN PLATELET VOLUME 9.6 fL (7.4-10.4); MONOCYTES % (AUTO) 11 % (2-9); NEUTROPHILS % (AUTO) 63 % (42-75); PLATELET COUNT 281 x10^3/uL (130-400); RED BLOOD COUNT 3.82 x10^6/uL (4.38-5.82); RED CELL DISTRIBUTION WIDTH 15.2 % (9.4-14.8)
[2020-07-13 12:55] LABS: ANION GAP 11 mmol/L (5-15); CALCIUM 9.3 mg/dL (8.5-10.1); CHLORIDE 102 mmol/L (98-107); CREATININE 6.94 mg/dL (0.7-1.3)
[2020-07-13 12:56] LABS: ALBUMIN 3.6 g/dL (3.4-5.0)
--- NOTE | 2020-07-13 12:56 | NUR ---
FURNACE MAINTENANCE: PT TO ROOM FROM [facility] PAST[facility]
[2020-07-13 13:02] LABS: MD NO
--- NOTE | 2020-07-13 13:07 | NUR ---
PATIENT WALKED BACK FROM TRIAGE WITH CHIEF C/O SWELLING AND DISCOLORATION AT LEFT LOWER ARM FISTUAL SITE. PATIENT STATES FISTULA WAS PLACED ABOUT 2 WEEKS AGO, AND SLITTER SCORER CUT OFF OPERATOR TOLD PATIENT FRIDAY THE THAT FISTUAL SEEMS TO BE "CLOTTED." PATIENT C/O OF 2/10 PAIN AT FISTUAL SITE. CONNECTED TO VITAL MACHINE, NO SIGNS OF ACUTE DISTRESS, CALL LIGHT WITHIN REACH.
--- NOTE | 2020-07-13 14:49 | NUR ---
PT TO BE CONSULTED BY VASCULAR. FISTULA IS CLOTTED
[2020-07-13 14:59] VITALS: BP 180/85
--- NOTE | 2020-07-13 15:40 | NUR ---
Patient/Caregiver given discharge instructions and they have confirmed that they understand the instructions. Patient ambulatory with steady gait.
== END 2020-07-13 15:42 | disposition home or self-care (01) ==
LOC: ED 13:56
DX: N18.6 End stage renal disease (principal); N28.0 Ischemia and infarction of kidney; I45.9 Conduction disorder, unspecified; R94.31 Abnormal electrocardiogram [ECG] [EKG]; Z99.2 Dependence on renal dialysis
CPT/HCPCS: 36415; 80048; 82040; 85025; 93005; 93990; 99285

== ENCOUNTER 2020-07-28 22:44 | Inpatient (IN) | payer MEDICAID ==
[~2020-07-28] VITALS: Ht 162.6 cm; Wt 64.6 kg
--- NOTE | 2020-07-28 23:30 | NUR ---
PT HAVING HEADACHE X 3 WEEKS, WORSE TODAY. PT HAVING TROUBLE PROCESSING THOUGHTS, GET DIALYSIS, LAST TIME WAS TODAY. PT RESTING IN BED, DROWSY, A/OX4 DENIES N/V, STEADY AMBULATING. PLACED ON ALL MONITORS, LAB AT BEDSIDE, CXR DONE, AWAITING HEAD CT.
[2020-07-28 23:53] LABS: BASOPHILS % (AUTO) 1 % (0-1); EOSINOPHILS % (AUTO) 5 % (1-7); LYMPHOCYTES % (AUTO) 21 % (22-44); MEAN CORPUSCULAR HEMOGLOBIN 32.6 pg (27.5-34.5); MEAN CORPUSCULAR HGB CONC 33.5 g/dL (33.2-36.2); MEAN PLATELET VOLUME 9.3 fL (7.4-10.4); MONOCYTES % (AUTO) 10 % (2-9); NEUTROPHILS % (AUTO) 64 % (42-75); PLATELET COUNT 252 x10^3/uL (130-400); RED BLOOD COUNT 3.39 x10^6/uL (4.38-5.82); RED CELL DISTRIBUTION WIDTH 14.2 % (9.4-14.8)
[2020-07-28 23:56] LABS: ALBUMIN 3.5 g/dL (3.4-5.0); ANION GAP 6 mmol/L (5-15); CALCIUM 8.4 mg/dL (8.5-10.1); CHLORIDE 97 mmol/L (98-107)
[2020-07-28 23:59] LABS: ALANINE AMINOTRANSFERASE 19 U/L (12-78); ALKALINE PHOSPHATASE 89 U/L (45-117); BILIRUBIN,TOTAL 0.3 mg/dL (0.2-1.0); CREATININE 4.85 mg/dL (0.7-1.3); TOTAL PROTEIN 6.9 g/dL (6.4-8.2)
[2020-07-29] VITALS (10 sets, daily range): BP systolic 170–207; BP diastolic 84–103
[2020-07-29 00:14] LABS: MD NO
--- NOTE | 2020-07-29 01:32 | NUR ---
PT GIVEN WATER, OK PER MD, AND WARM BLANKETS
--- NOTE | 2020-07-29 01:32 | NUR ---
IV PLACED ON RIGHT ARM, AWAY FROM FISTUAL, OK PER ERP.
--- NOTE | 2020-07-29 01:46 | NUR ---
REPORT GIVEN TO LJ GUERRA
[2020-07-29] MEDS ORDERED: ONDANSETRON 2MG/ML, 2ML IVPush PRN (02:00)
[2020-07-29] MEDS ORDERED: ONDANSETRON ODT 4 MG PO PRN (02:00)
[2020-07-29] MEDS ORDERED: morphine SULFATE 10 MG/ML, 1ML IVPush PRN (02:00)
[2020-07-29] MEDS ORDERED: BISACODYL 10 MG SUPP PR PRN (02:00)
[2020-07-29] MEDS ORDERED: PROMETHAZINE 25 MG/ML, 1ML IM PRN (02:00)
[2020-07-29] MEDS ORDERED: hydrALAzine 20 MG/ML, 1ML IVPush PRN (02:00)
[2020-07-29 02:03] LABS: FREE T4 (FREE THYROXINE) 1.08 ng/dL (0.76-1.46)
[2020-07-29] MEDS: LABETALOL 5MG/ML, 20ML IVPush PRN ×2 (02:49→17:35)
[2020-07-29] MEDS: INSULIN GLARGINE 100 UNITS/ML, PEN SQ-INSULIN SCH ×2 (02:50→21:00)
[2020-07-29] MEDS: HEPARIN 5,000 UNITS/ML, 1ML SQ SCH ×4 (02:50→17:31)
[2020-07-29] MEDS: CARVEDILOL 12.5 MG TABLET PO SCH ×3 (05:46→20:05)
[2020-07-29] MEDS: ASPIRIN 325 MG TABLET EC PO SCH (05:46)
[2020-07-29] MEDS: INSULIN LISPRO 100 UNITS/ML, PEN SQ-INSULIN SCH ×4 (07:12→21:35)
[2020-07-29] MEDS: OMEPRAZOLE 10 MG CAPSULE.DR PO SCH (07:43)
[2020-07-29] MEDS ORDERED: ASPIRIN 81 MG TABLET EC PO SCH (09:00)
[2020-07-29] MEDS ORDERED: LOSARTAN 25MG TABLET PO SCH (09:00)
[2020-07-29] MEDS: ACETAMINOPHEN 325 MG TABLET PO PRN ×2 (09:23→13:32)
[2020-07-29] MEDS ORDERED: INSULIN LISPRO 100 UNITS/ML, PEN SQ-INSULIN ONE (11:30)
[2020-07-29] MEDS: ISOSORBIDE DINITRATE 20 MG TABLET PO SCH ×3 (11:50→20:01)
[2020-07-29] MEDS ORDERED: LOSARTAN 25MG TABLET PO ONE (12:00)
[2020-07-29] MEDS: ATORVASTATIN 20 MG TABLET PO SCH (20:00)
[2020-07-29] MEDS: LOSARTAN 50MG TABLET PO SCH (20:02)
[2020-07-30] VITALS (7 sets, daily range): BP systolic 112–190; BP diastolic 66–99
[2020-07-30] MEDS: HEPARIN 5,000 UNITS/ML, 1ML SQ SCH ×3 (02:23→18:17)
[2020-07-30] MEDS: CARVEDILOL 12.5 MG TABLET PO SCH ×2 (05:53→18:16)
[2020-07-30] MEDS: ASPIRIN 325 MG TABLET EC PO SCH (05:53)
[2020-07-30 06:16] LABS: BASOPHILS % (AUTO) 1 % (0-1); EOSINOPHILS % (AUTO) 3 % (1-7); LYMPHOCYTES % (AUTO) 24 % (22-44); MEAN CORPUSCULAR HEMOGLOBIN 32.3 pg (27.5-34.5); MEAN CORPUSCULAR HGB CONC 33.5 g/dL (33.2-36.2); MEAN PLATELET VOLUME 9.4 fL (7.4-10.4); MONOCYTES % (AUTO) 7 % (2-9); NEUTROPHILS % (AUTO) 65 % (42-75); PLATELET COUNT 253 x10^3/uL (130-400); RED BLOOD COUNT 3.28 x10^6/uL (4.38-5.82); RED CELL DISTRIBUTION WIDTH 14.3 % (9.4-14.8)
[2020-07-30 06:20] LABS: MD NO
[2020-07-30 06:32] LABS: CHLORIDE 97 mmol/L (98-107)
[2020-07-30 06:41] LABS: ALANINE AMINOTRANSFERASE 17 U/L (12-78); ALBUMIN 3.4 g/dL (3.4-5.0); ALKALINE PHOSPHATASE 66 U/L (45-117); ANION GAP 9 mmol/L (5-15); BILIRUBIN,TOTAL 0.4 mg/dL (0.2-1.0); CHOL/HDL RATIO 2.6; CHOLESTEROL, TOTAL 94 mg/dL (140-239); CREATININE 8.17 mg/dL (0.7-1.3); HDL CHOL % 38 % (26-37); HDL CHOLESTEROL (DIRECT) 36 mg/dL (40-60); LDL CHOLESTEROL,CALCULATED 44 mg/dL (54-169); LDL/HDL RATIO 1.2 (0.5-3.0); TOTAL PROTEIN 6.3 g/dL (6.4-8.2); TRIGLYCERIDES 69 mg/dL (50-200); VLDL CHOLESTEROL 14 mg/dL (0-25)
[2020-07-30] MEDS: INSULIN LISPRO 100 UNITS/ML, PEN SQ-INSULIN SCH ×4 (08:48→20:38)
[2020-07-30] MEDS: OMEPRAZOLE 10 MG CAPSULE.DR PO SCH (08:49)
[2020-07-30] MEDS: LOSARTAN 50MG TABLET PO SCH ×2 (08:49→20:45)
[2020-07-30] MEDS: ISOSORBIDE DINITRATE 20 MG TABLET PO SCH ×3 (08:49→20:45)
[2020-07-30] MEDS: AMLODIPINE 10 MG TAB PO SCH (08:49)
[2020-07-30] MEDS: DOCUSATE 100 MG CAPSULE PO PRN (08:50)
[2020-07-30] MEDS: LABETALOL 5MG/ML, 20ML IVPush PRN (12:19)
[2020-07-30] MEDS: INSULIN GLARGINE 100 UNITS/ML, PEN SQ-INSULIN SCH (17:50)
[2020-07-30] MEDS: ACETAMINOPHEN 325 MG TABLET PO PRN (20:45)
[2020-07-30] MEDS: ATORVASTATIN 20 MG TABLET PO SCH (20:45)
[2020-07-30] MEDS: hydrALAzine 20 MG/ML, 1ML IV PRN (23:11)
[2020-07-30] MEDS: OXYcodone IR 5MG TABLET PO PRN (23:12)
[2020-07-31 00:29] VITALS: BP 167/84
[2020-07-31] MEDS: HEPARIN 5,000 UNITS/ML, 1ML SQ SCH ×2 (02:02→11:10)
[2020-07-31 04:42] VITALS: BP 126/71
[2020-07-31] MEDS: CARVEDILOL 12.5 MG TABLET PO SCH ×2 (06:05→17:54)
[2020-07-31] MEDS: ASPIRIN 325 MG TABLET EC PO SCH (06:05)
[2020-07-31 06:11] LABS: BASOPHILS % (AUTO) 1 % (0-1); EOSINOPHILS % (AUTO) 1 % (1-7); LYMPHOCYTES % (AUTO) 13 % (22-44); MEAN CORPUSCULAR HEMOGLOBIN 32.6 pg (27.5-34.5); MEAN CORPUSCULAR HGB CONC 33.4 g/dL (33.2-36.2); MEAN PLATELET VOLUME 9.7 fL (7.4-10.4); MONOCYTES % (AUTO) 4 % (2-9); NEUTROPHILS % (AUTO) 82 % (42-75); PLATELET COUNT 261 x10^3/uL (130-400); RED CELL DISTRIBUTION WIDTH 14.3 % (9.4-14.8)
[2020-07-31 06:14] LABS: MD NO
[2020-07-31 06:21] LABS: ANION GAP 13 mmol/L (5-15); CALCIUM 8.4 mg/dL (8.5-10.1); CHLORIDE 93 mmol/L (98-107)
[2020-07-31 06:37] VITALS: BP 149/74
[2020-07-31] MEDS: POLYETHYLENE GLYCOL 17 GM PACKET PO PRN (07:54)
[2020-07-31] MEDS: DOCUSATE 100 MG CAPSULE PO PRN (07:54)
[2020-07-31] MEDS: AMLODIPINE 10 MG TAB PO SCH (07:54)
[2020-07-31] MEDS: SODIUM POLYSTYRENE SULFONATE ORAL SUSP PO ONE ×2 (07:54→08:20)
[2020-07-31] MEDS: LOSARTAN 50MG TABLET PO SCH ×2 (07:54→21:14)
[2020-07-31] MEDS: ISOSORBIDE DINITRATE 20 MG TABLET PO SCH ×2 (07:54→08:04)
[2020-07-31] MEDS: OMEPRAZOLE 10 MG CAPSULE.DR PO SCH (07:54)
[2020-07-31] MEDS: INSULIN LISPRO 100 UNITS/ML, PEN SQ-INSULIN SCH ×5 (08:19→21:16)
[2020-07-31 13:47] VITALS: BP 176/83
[2020-07-31 16:09] VITALS: BP 195/88
[2020-07-31] MEDS ORDERED: ALTEPLASE 6 MG in SYRINGE 1 EA IVPush STA (16:20)
[2020-07-31] MEDS ORDERED: ALTEPLASE IV STA (16:20)
[2020-07-31 17:21] LABS: INTERNATIONAL NORMALIZED RATIO 0.99 (0.93-1.1); PROTHROMBIN TIME 10.5 Seconds (9.6-11.5)
[2020-07-31] MEDS: hydrALAzine 20 MG/ML, 1ML IV PRN (17:53)
[2020-07-31] MEDS: OXYcodone IR 5MG TABLET PO PRN (17:54)
[2020-07-31] MEDS: CLOPIDOGREL 75 MG TABLET PO SCH (18:01)
[2020-07-31] MEDS: ATORVASTATIN 40 MG TABLET PO SCH (21:14)
[2020-07-31] MEDS: INSULIN GLARGINE 100 UNITS/ML, PEN SQ-INSULIN SCH (21:17)
[2020-07-31] MEDS ORDERED: SODIUM CHLORIDE 0.9% 1,000ML IVBOLUS ONE (22:30)
[2020-08-01] MEDS ORDERED: SODIUM CHLORIDE 0.9%, 500ML IVBOLUS ONE
[2020-08-01] MEDS ORDERED: INSULIN LISPRO 100 UNITS/ML, PEN SQ-INSULIN ONE (01:00)
[2020-08-01] MEDS: ACETAMINOPHEN 325 MG TABLET PO PRN (03:25)
[2020-08-01 04:00] VITALS: BP 129/68
[2020-08-01 05:42] LABS: BASOPHILS % (AUTO) 1 % (0-1); EOSINOPHILS % (AUTO) 2 % (1-7); LYMPHOCYTES % (AUTO) 20 % (22-44); MEAN CORPUSCULAR HEMOGLOBIN 32.7 pg (27.5-34.5); MEAN CORPUSCULAR HGB CONC 33.7 g/dL (33.2-36.2); MEAN PLATELET VOLUME 9.7 fL (7.4-10.4); MONOCYTES % (AUTO) 8 % (2-9); NEUTROPHILS % (AUTO) 70 % (42-75); PLATELET COUNT 234 x10^3/uL (130-400); RED BLOOD COUNT 3.13 x10^6/uL (4.38-5.82); RED CELL DISTRIBUTION WIDTH 14.3 % (9.4-14.8)
[2020-08-01] MEDS: CARVEDILOL 12.5 MG TABLET PO SCH ×2 (05:51→17:01)
[2020-08-01 06:00] LABS: MD NO
[2020-08-01 06:01] LABS: CHLORIDE 101 mmol/L (98-107)
[2020-08-01 06:05] LABS: ANION GAP 8 mmol/L (5-15); CALCIUM 8.7 mg/dL (8.5-10.1); CREATININE 7.94 mg/dL (0.7-1.3)
[2020-08-01] MEDS: OXYcodone IR 5MG TABLET PO PRN (06:51)
[2020-08-01] MEDS: INSULIN LISPRO 100 UNITS/ML, PEN SQ-INSULIN SCH ×4 (07:00→20:51)
[2020-08-01] MEDS: CLOPIDOGREL 75 MG TABLET PO SCH (08:52)
[2020-08-01] MEDS: LOSARTAN 50MG TABLET PO SCH ×2 (08:52→20:51)
[2020-08-01] MEDS: AMLODIPINE 10 MG TAB PO SCH (08:52)
[2020-08-01] MEDS: INSULIN GLARGINE 100 UNITS/ML, PEN SQ-INSULIN SCH ×2 (08:53→20:51)
[2020-08-01] MEDS ORDERED: CLOPIDOGREL 75 MG TABLET PO SCH (09:00)
[2020-08-01] MEDS: ATORVASTATIN 40 MG TABLET PO SCH (20:48)
[2020-08-01 20:50] VITALS: BP 112/66
[2020-08-02] MEDS: DOCUSATE 100 MG CAPSULE PO PRN (03:33)
[2020-08-02] MEDS: POLYETHYLENE GLYCOL 17 GM PACKET PO PRN (03:33)
[2020-08-02] MEDS: CARVEDILOL 12.5 MG TABLET PO SCH ×2 (06:00→18:00)
[2020-08-02] MEDS: INSULIN LISPRO 100 UNITS/ML, PEN SQ-INSULIN SCH ×5 (07:00→21:00)
[2020-08-02 07:31] VITALS: BP 161/82
[2020-08-02] MEDS ORDERED: ACETAMINOPHEN 325 MG TABLET PO ONE (08:00)
[2020-08-02] MEDS: INSULIN GLARGINE 100 UNITS/ML, PEN SQ-INSULIN SCH ×3 (08:11→21:00)
[2020-08-02] MEDS ORDERED: SODIUM CHLORIDE NASAL SPRAY 45ML BOTTLE NAS PRN (09:00)
[2020-08-02] MEDS: CLOPIDOGREL 75 MG TABLET PO SCH (09:05)
[2020-08-02] MEDS: AMLODIPINE 10 MG TAB PO SCH (09:05)
[2020-08-02] MEDS: LOSARTAN 50MG TABLET PO SCH ×2 (09:06→21:00)
[2020-08-02] MEDS ORDERED: PINK LADY ENEMA 490 ML BOTTLE PR ONE (12:00)
[2020-08-02 13:40] VITALS: BP 126/68
[2020-08-02] MEDS: ACETAMINOPHEN 325 MG TABLET PO PRN (17:21)
[2020-08-02 20:09] VITALS: BP 124/73
[2020-08-02] MEDS: ATORVASTATIN 40 MG TABLET PO SCH (21:00)
[2020-08-03 01:32] VITALS: BP 158/83
[2020-08-03 04:33] LABS: BASOPHILS % (AUTO) 1 % (0-1); EOSINOPHILS % (AUTO) 3 % (1-7); LYMPHOCYTES % (AUTO) 16 % (22-44); MEAN CORPUSCULAR HEMOGLOBIN 32.8 pg (27.5-34.5); MEAN CORPUSCULAR HGB CONC 33.7 g/dL (33.2-36.2); MEAN PLATELET VOLUME 9.4 fL (7.4-10.4); MONOCYTES % (AUTO) 10 % (2-9); NEUTROPHILS % (AUTO) 70 % (42-75); PLATELET COUNT 230 x10^3/uL (130-400); RED BLOOD COUNT 3.13 x10^6/uL (4.38-5.82); RED CELL DISTRIBUTION WIDTH 13.9 % (9.4-14.8)
[2020-08-03 04:39] LABS: ALBUMIN 3.3 g/dL (3.4-5.0); ANION GAP 6 mmol/L (5-15); CALCIUM 8.5 mg/dL (8.5-10.1); CHLORIDE 103 mmol/L (98-107)
[2020-08-03 04:44] LABS: CREATININE 7.27 mg/dL (0.7-1.3)
[2020-08-03 04:45] LABS: ALANINE AMINOTRANSFERASE 23 U/L (12-78); ALKALINE PHOSPHATASE 69 U/L (45-117); BILIRUBIN,TOTAL 0.4 mg/dL (0.2-1.0); TOTAL PROTEIN 6.4 g/dL (6.4-8.2)
[2020-08-03 04:54] LABS: MD NO
[2020-08-03] MEDS: CARVEDILOL 12.5 MG TABLET PO SCH (05:45)
[2020-08-03] MEDS: INSULIN LISPRO 100 UNITS/ML, PEN SQ-INSULIN SCH ×2 (07:00→11:17)
[2020-08-03 07:50] VITALS: BP 141/83
[2020-08-03] MEDS: LOSARTAN 50MG TABLET PO SCH (10:03)
[2020-08-03] MEDS: CLOPIDOGREL 75 MG TABLET PO SCH (10:03)
[2020-08-03] MEDS: INSULIN GLARGINE 100 UNITS/ML, PEN SQ-INSULIN SCH (10:03)
[2020-08-03] MEDS: AMLODIPINE 10 MG TAB PO SCH (10:03)
[2020-08-03] MEDS ORDERED: LOSA50TA2 PO (11:00)
[2020-08-03] MEDS ORDERED: CLOP75TA PO (11:00)
[2020-08-03] MEDS ORDERED: AMLO-211 PO (11:00)
[2020-08-03] MEDS ORDERED: CLON0.2T10 PO (11:00)
[2020-08-03 12:53] VITALS: BP 125/66
== END 2020-08-03 13:35 | disposition home or self-care (01) | DRG 45 ==
LOC: ED 23:14 → EDIP 07-29 01:22 → INTOOBSV 07-29 01:22 → OBSVTOIN 07-29 01:22 → 4WST 07-29 02:22 → CCU 07-31 17:22 → 4WST 08-01 18:32 → DCLOUNGE 08-03 13:12
PROVIDERS: ADMIT Internal Medicine; ATTEND Hospitalist
DX: I63.89 Other cerebral infarction (principal); D53.9 Nutritional anemia, unspecified; D63.1 Anemia in chronic kidney disease; E11.22 Type 2 diabetes mellitus with diabetic chronic kidney disease; E78.5 Hyperlipidemia, unspecified; E87.5 Hyperkalemia; G46.0 Middle cerebral artery syndrome; G81.91 Hemiplegia, unspecified affecting right dominant side; G47.00 Insomnia, unspecified; I12.0 Hypertensive chronic kidney disease with stage 5 chronic kidney disease or end stage renal disease; K21.9 Gastro-esophageal reflux disease without esophagitis; N18.6 End stage renal disease; N25.0 Renal osteodystrophy; R47.01 Aphasia; Z79.4 Long term (current) use of insulin; Z82.49 Family history of ischemic heart disease and other diseases of the circulatory system; Z99.2 Dependence on renal dialysis
CPT/HCPCS: 36415; 70450; 70551; 71045; 74018; 80048; 80053; 80061; 82962; 83036; 83735; 84100; 84439; 84443; 84484; 85025; 85610; 85730; 87081; 90935; 93005; 93306; 93880; 99285; G0378; J1644; J2550; J2997; Q0162; 92523-GN; J0360; J1815; J2270; J7030; J7040

== ENCOUNTER 2020-08-14 09:08 | Inpatient (IN) | payer MEDICAID ==
[~2020-08-14] VITALS: Ht 162.6 cm; Wt 67.8 kg
[~2020-08-14 09:08] MED LIST changes: +AMLO-211 PO; +CLON0.2T10 PO; +CLOP75TA PO; +LOSA50TA2 PO
--- NOTE | 2020-08-14 09:25 | NUR ---
pt BIB [facility] from home c/o ALOC and feeling cold this AM. per report, pt family noted that pt is altered and lethargic this AM. pt is a dialysis pt that goes -- and is due for dilaysis today. pt states that he did go to his last dialysis appt last Friday. pt has a dialysis cath to R chest that as no dressing in place covering the site. pt also had recent fistula palcement to RUE above the wrist that is still healing and not in use at this time per report, pt has a hx of DM and FSBS was 72 on scene which per family is very low for pt. 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 pt was initially ALOC on scene and only speaking bulgarian, but after glucose admin, pt was more alert and began speaking bulgarian. pt reports feeling cold and [facility] was unable to obtain temp QUAL[employer] ASS[employer]ANCE SUPERVISOR CHASSIS. upon admit, unable to obtain oral temp. recal temp taken and shows body temp at 90.0. re-taken for verification and temp is the same. pt currently answering questions and following commands appropriatley. no family at bedside. Dr. Suh at bedside for [place]
[2020-08-14] MEDS ORDERED: SODIUM CHLORIDE FLUSH 10ML SYR IVF ONE (09:30)
--- NOTE | 2020-08-14 10:00 | NUR ---
IV started with blood draw. lab has previously been to bedside to draw but was unsuccessful x2. lab has returned to bedside for 2nd BC draw.
--- NOTE | 2020-08-14 10:15 | NUR ---
CXR at bedside. bear hugger in place and warming in place
[2020-08-14] MEDS ORDERED: SODIUM CHLORIDE 0.9% 1,000 ML IV ONE (10:30)
--- NOTE | 2020-08-14 10:30 | NUR ---
pt has warming methods in pace and warm IV fluids infusing through hotline tubing
[2020-08-14 10:35] LABS: BASOPHILS % (AUTO) 0 % (0-1); EOSINOPHILS % (AUTO) 1 % (1-7); LYMPHOCYTES % (AUTO) 6 % (22-44); MEAN CORPUSCULAR HEMOGLOBIN 32.3 pg (27.5-34.5); MEAN CORPUSCULAR HGB CONC 33.9 g/dL (33.2-36.2); MEAN PLATELET VOLUME 9.2 fL (7.4-10.4); MONOCYTES % (AUTO) 4 % (2-9); NEUTROPHILS % (AUTO) 89 % (42-75); PLATELET COUNT 258 x10^3/uL (130-400); RED BLOOD COUNT 3.31 x10^6/uL (4.38-5.82); RED CELL DISTRIBUTION WIDTH 13.9 % (9.4-14.8)
[2020-08-14 10:37] LABS: ALANINE AMINOTRANSFERASE 20 U/L (12-78); ALBUMIN 3.6 g/dL (3.4-5.0); ANION GAP 16 mmol/L (5-15); CHLORIDE 100 mmol/L (98-107)
[2020-08-14 10:47] LABS: ALKALINE PHOSPHATASE 70 U/L (45-117); BILIRUBIN,TOTAL 0.4 mg/dL (0.2-1.0); TOTAL PROTEIN 6.7 g/dL (6.4-8.2)
[2020-08-14] MEDS ORDERED: VANCOMYCIN PER PHARMACY MC PRN (11:00)
--- NOTE | 2020-08-14 11:00 | NUR ---
after discussion with Dr. Suh, core re-warming through pittman flush to be held at this time. do not place 3way pittman. pt to have temp probe pittman for core temp monitoring
[2020-08-14 11:06] LABS: MICROSCOPIC AUTO
[2020-08-14] MEDS ORDERED: VANCOMYCIN 1,300 MG in SODIUM CHLORIDE 0.9% 250 ML IV ONE (11:30)
--- NOTE | 2020-08-14 12:00 | NUR ---
pt to have PICC line placed OK to hold ABX until PICC line is in place and continue warmed saline infusion through peripheral IV at this time pt updated on POC
--- NOTE | 2020-08-14 12:10 | NUR ---
report to Oscar CALHOUN for lunch
[2020-08-14] MEDS ORDERED: ACETAMINOPHEN 325 MG TABLET ONE (12:21)
--- NOTE | 2020-08-14 12:24 | NUR ---
TASK RN NOTE: PT HOB REPOSITIONED FOR COMFORT. NAD NOTED AT THIS TIME. RESPIRATIONS EVEN AND UNLABORED ON RA. PT MEDICATED PER EMAR. CURRENTLY AWAITING PICC LINE PLACEMENT. WARMED IVF INFUSING AT THIS TIME.
[2020-08-14] MEDS ORDERED: ACETAMINOPHEN 325 MG TABLET PO ONE (12:30)
[2020-08-14 12:36] LABS: MD SCAN
--- NOTE | 2020-08-14 13:06 | NUR ---
pt resting in position of comfort, dozing intermittently. easily arousable. reports that he is feeling much better. pt to be admitted. awaiting admit MD to bedside. awaiting PICC placement
[2020-08-14] MEDS ORDERED: LACTULOSE 10 GM/15 ML UDC PO PRN (13:30)
[2020-08-14] MEDS: HEPARIN 5,000 UNITS/ML, 1ML SQ SCH ×2 (13:30→21:18)
[2020-08-14] MEDS ORDERED: METOCLOPRAMIDE 5 MG/ML, 2ML IVPush PRN (13:30)
[2020-08-14] MEDS ORDERED: TRAZODONE 50MG TABLET PO PRN (13:30)
--- NOTE | 2020-08-14 14:00 | NUR ---
no changes. pt resting in position of comfort with warming steps in place. pt reports some reief of RAMSEY after tylenol. pt denies dizzines, no loss or change of vision. pt updated on POC
--- NOTE | 2020-08-14 14:25 | NUR ---
pt assisted to BS commode per request to attempt BM
--- NOTE | 2020-08-14 14:35 | NUR ---
pt states that he is unable to have BM at this time pt assisted back to misha. positioning for comfort. warm fluid infusion continues
--- NOTE | 2020-08-14 14:40 | NUR ---
pt to IR via misha for PICC placement
--- NOTE | 2020-08-14 15:25 | NUR ---
pt has returned from IR. dual lumen PICC in place. pt sitting up in position of comfort. pt requesting PO snack. applesauce and crackers given. pt has passed dysphagia screen. bed assignment recieved, attempting to call report
--- NOTE | 2020-08-14 15:35 | NUR ---
report called to Willi CALHOUN
[2020-08-14] MEDS ORDERED: CEFTRIAXONE PMX 2GM/50ML 50 ML IVPB SCH (16:30)
[2020-08-14] MEDS: CARVEDILOL 12.5 MG TABLET PO SCH (17:10)
[2020-08-14] MEDS: ISOSORBIDE DINITRATE 20 MG TABLET PO SCH ×2 (17:10→21:18)
[2020-08-14] MEDS: INSULIN LISPRO 100 UNITS/ML, PEN SQ-INSULIN SCH ×2 (17:18→21:39)
[2020-08-14 20:57] VITALS: BP 197/101
[2020-08-14] MEDS ORDERED: ATORVASTATIN 20 MG TABLET PO SCH (21:00)
[2020-08-14] MEDS: ACETAMINOPHEN 325 MG TABLET PO PRN (21:17)
[2020-08-14 22:51] VITALS: BP 148/81
[2020-08-15 00:24] VITALS: BP 175/94
[2020-08-15] MEDS ORDERED: BUTALB/APAP/CAFFEINE 50MG/325MG/40MG PO PRN (01:00)
[2020-08-15] MEDS ORDERED: hydrALAzine 20 MG/ML, 1ML IV PRN (01:00)
[2020-08-15 03:13] VITALS: BP 146/83
[2020-08-15 05:47] LABS: BASOPHILS % (AUTO) 0 % (0-1); EOSINOPHILS % (AUTO) 3 % (1-7); LYMPHOCYTES % (AUTO) 18 % (22-44); MEAN CORPUSCULAR HEMOGLOBIN 33.1 pg (27.5-34.5); MEAN PLATELET VOLUME 9.5 fL (7.4-10.4); MONOCYTES % (AUTO) 7 % (2-9); NEUTROPHILS % (AUTO) 72 % (42-75); PLATELET COUNT 236 x10^3/uL (130-400); RED BLOOD COUNT 2.79 x10^6/uL (4.38-5.82)
[2020-08-15 05:55] LABS: ANION GAP 8 mmol/L (5-15); CALCIUM 8.1 mg/dL (8.5-10.1); CHLORIDE 99 mmol/L (98-107); CREATININE 7.24 mg/dL (0.7-1.3)
[2020-08-15 06:01] VITALS: BP 166/90
[2020-08-15] MEDS: CARVEDILOL 12.5 MG TABLET PO SCH ×2 (06:03→17:36)
[2020-08-15] MEDS: HEPARIN 5,000 UNITS/ML, 1ML SQ SCH ×2 (06:04→13:17)
[2020-08-15 06:21] LABS: MD NO
[2020-08-15] MEDS ORDERED: OMEPRAZOLE 10 MG CAPSULE.DR PO SCH (06:30)
[2020-08-15 06:40] VITALS: BP 179/89
[2020-08-15] MEDS: INSULIN LISPRO 100 UNITS/ML, PEN SQ-INSULIN SCH ×3 (07:00→16:28)
[2020-08-15] MEDS: ISOSORBIDE DINITRATE 20 MG TABLET PO SCH ×2 (08:34→16:27)
[2020-08-15] MEDS ORDERED: CLOPIDOGREL 75 MG TABLET PO SCH (09:00)
[2020-08-15] MEDS ORDERED: MINOXIDIL 2.5 MG TABLET PO ONE (09:00)
[2020-08-15] MEDS ORDERED: ASPIRIN 81 MG TABLET EC PO SCH (09:00)
[2020-08-15] MEDS ORDERED: AMLODIPINE 10 MG TAB PO SCH (09:00)
[2020-08-15] MEDS ORDERED: INSULIN GLARGINE 100 UNITS/ML, PEN SQ-INSULIN ONE (09:00)
[2020-08-15] MEDS: ACETAMINOPHEN 325 MG TABLET PO PRN ×2 (10:11→17:36)
[2020-08-15] MEDS ORDERED: INSULIN LISPRO 100 UNIT/ML, 3ML VIAL SQ-INSULIN SCH (10:30)
[2020-08-15 12:03] VITALS: BP 134/72
[2020-08-15] MEDS ORDERED: INSU100V8 SQ (14:18)
== END 2020-08-15 17:38 | disposition home or self-care (01) | DRG 420 ==
LOC: ED 10:18 → EDIP 12:33 → 5SO 16:11
PROVIDERS: ADMIT Internal Medicine; ATTEND Internal Medicine
PROC: 0T9B70Z Drainage of Bladder with Drainage Device, Via Natural or Artificial Opening (ICD-10-PCS; principal; 2020-08-14)
PROC: 02HV33Z Insertion of Infusion Device into Superior Vena Cava, Percutaneous Approach (ICD-10-PCS; 2020-08-14)
PROC: B548ZZA Ultrasonography of Superior Vena Cava, Guidance (ICD-10-PCS; 2020-08-14)
PROC: B5181ZA Fluoroscopy of Superior Vena Cava using Low Osmolar Contrast, Guidance (ICD-10-PCS; 2020-08-14)
DX: E10.641 Type 1 diabetes mellitus with hypoglycemia with coma (principal); G92 Toxic encephalopathy; D63.1 Anemia in chronic kidney disease; E10.22 Type 1 diabetes mellitus with diabetic chronic kidney disease; E78.5 Hyperlipidemia, unspecified; E87.5 Hyperkalemia; I12.0 Hypertensive chronic kidney disease with stage 5 chronic kidney disease or end stage renal disease; N18.6 End stage renal disease; Y83.2 Surgical operation with anastomosis, bypass or graft as the cause of abnormal reaction of the patient, or of later complication, without mention of misadventure at the time of the procedure; T82.868A Thrombosis due to vascular prosthetic devices, implants and grafts, initial encounter; R68.0 Hypothermia, not associated with low environmental temperature; N25.0 Renal osteodystrophy; Z79.4 Long term (current) use of insulin; Z86.73 Personal history of transient ischemic attack (TIA), and cerebral infarction without residual deficits; Z91.19 Patient's noncompliance with other medical treatment and regimen; Z99.2 Dependence on renal dialysis
CPT/HCPCS: 36415; 36573; 71045; 80048; 80053; 81001; 82947; 82962; 83605; 84145; 84443; 85025; 87040; 90935; 93005; 96361; 96374; 96375; 99291; G0378; J0696; J1644; J3370; C1751; J0360; J1815; J7030; J7050

== ENCOUNTER 2020-09-19 16:39 | Inpatient (IN) | payer MEDICAID ==
[~2020-09-19] VITALS: Ht 162.6 cm; Wt 68.0 kg
[2020-09-19] MEDS ORDERED: SODIUM CHLORIDE FLUSH 10ML SYR IVF ONE (17:30)
--- NOTE | 2020-09-19 18:06 | NUR ---
office services clerk: pt from lobby to 25
[2020-09-19 19:08] LABS: BASOPHILS % (AUTO) 1 % (0-1); EOSINOPHILS % (AUTO) 0 % (1-7); LYMPHOCYTES % (AUTO) 16 % (22-44); MEAN CORPUSCULAR HEMOGLOBIN 33.2 pg (27.5-34.5); MEAN PLATELET VOLUME 8.8 fL (7.4-10.4); MONOCYTES % (AUTO) 9 % (2-9); NEUTROPHILS % (AUTO) 74 % (42-75); PLATELET COUNT 220 x10^3/uL (130-400); RED BLOOD COUNT 2.54 x10^6/uL (4.38-5.82); RED CELL DISTRIBUTION WIDTH 14.4 % (9.4-14.8)
[2020-09-19 19:10] LABS: MD NO
[2020-09-19 19:15] LABS: ALANINE AMINOTRANSFERASE 17 U/L (12-78); ALBUMIN 3.5 g/dL (3.4-5.0); ANION GAP 14 mmol/L (5-15); CALCIUM 8.4 mg/dL (8.5-10.1); CHLORIDE 95 mmol/L (98-107)
[2020-09-19 19:17] LABS: ALKALINE PHOSPHATASE 59 U/L (45-117); BILIRUBIN,TOTAL 0.4 mg/dL (0.2-1.0); TOTAL PROTEIN 6.6 g/dL (6.4-8.2)
[2020-09-19] MEDS ORDERED: SODIUM ZIRCONIUM CYCLOSILICATE 10 GM PO ONE (20:00)
--- NOTE | 2020-09-19 21:02 | NUR ---
HOSPITALIST AT BEDSIDE.
--- NOTE | 2020-09-19 21:45 | NUR ---
PT MOVED TO HOSPITAL BED
--- NOTE | 2020-09-19 21:51 | NUR ---
report from anish assumed care of pt
--- NOTE | 2020-09-19 22:07 | NUR ---
PT PLACED ON ALL MONITORS WARM BLANKETS GIVEN AWAITING ADMIT ORDERS AT THIS TIME
[2020-09-19] MEDS ORDERED: PHENOL THROAT SPRAY BOTTLE MM PRN (22:30)
[2020-09-19] MEDS ORDERED: GUAIFENESIN/DM 200-20MG, 10ML UDC PO PRN (22:30)
[2020-09-19] MEDS ORDERED: PHARMACY MAY ADJ FOR RENAL FX MC PRN (22:30)
[2020-09-19] MEDS ORDERED: SODIUM CHLORIDE NASAL SPRAY 45ML BOTTLE NAS PRN (22:30)
[2020-09-19] MEDS ORDERED: hydrALAzine 20 MG/ML, 1ML IVPush PRN (22:30)
[2020-09-19] MEDS ORDERED: LIDODERM 5% PATCH TD PRN (22:30)
[2020-09-19] MEDS ORDERED: ONDANSETRON 2MG/ML, 2ML IVPush PRN (22:30)
[2020-09-19] MEDS ORDERED: MELATONIN 5 MG TABLET PO PRN (22:30)
[2020-09-19] MEDS ORDERED: HEPARIN 5,000 UNITS/ML, 1ML ONE (23:14)
[2020-09-19] MEDS: HEPARIN 5,000 UNITS/ML, 1ML SQ SCH (23:16)
--- NOTE | 2020-09-19 23:20 | NUR ---
DIALYSIS NURSE AT BEDSIDE, PT TO HAVE DIALYSIS AT THIS TIME
--- NOTE | 2020-09-20 02:39 | NUR ---
PT CONTINUES WITH DIALYSIS IN NAD
--- NOTE | 2020-09-20 02:56 | NUR ---
DIALYSIS COMPLETE AT THIS TIME 2 L REMOVED AT THIS TIME, REPORTED TO DR CENTENO BY IMMIGRATION SERVICES OFFICER
[2020-09-20] MEDS ORDERED: hydrALAzine 20 MG/ML, 1ML ONE (03:23)
--- NOTE | 2020-09-20 03:31 | NUR ---
CONTACT WITH DR VASQUES , MEDICATED FOR HTN AT THIS TIME, WARM BLANKET PROVIDED AND BEAR PAW
[2020-09-20] MEDS ORDERED: ACETAMINOPHEN 325 MG TABLET ONE (03:34)
[2020-09-20] MEDS: ACETAMINOPHEN 325 MG TABLET PO PRN ×3 (03:38→19:51)
--- NOTE | 2020-09-20 03:38 | NUR ---
TYLENOL GIVEN FOR BODY DISCOMFORT PER PT REQUEST
[2020-09-20 05:18] LABS: ANION GAP 9 mmol/L (5-15); CALCIUM 8.2 mg/dL (8.5-10.1); CHLORIDE 96 mmol/L (98-107)
[2020-09-20 05:22] LABS: HCT (SEDRATE) 26.4 % (39.2-51.8)
[2020-09-20 05:24] LABS: BASOPHILS % (AUTO) 0 % (0-1); EOSINOPHILS % (AUTO) 0 % (1-7); LYMPHOCYTES % (AUTO) 16 % (22-44); MEAN CORPUSCULAR HEMOGLOBIN 33.2 pg (27.5-34.5); MEAN CORPUSCULAR HGB CONC 34.6 g/dL (33.2-36.2); MONOCYTES % (AUTO) 9 % (2-9); NEUTROPHILS % (AUTO) 75 % (42-75); PLATELET COUNT 237 x10^3/uL (130-400); RED BLOOD COUNT 2.79 x10^6/uL (4.38-5.82); RED CELL DISTRIBUTION WIDTH 14.6 % (9.4-14.8)
[2020-09-20 05:27] LABS: D-DIMER 0.44 ug/mlFEU (0.00-0.52); INTERNATIONAL NORMALIZED RATIO 1.01 (0.93-1.1); PROTHROMBIN TIME 10.7 Seconds (9.6-11.5)
[2020-09-20 05:30] LABS: CREATINE KINASE, TOTAL 99 U/L (39-308); CREATININE 8.67 mg/dL (0.7-1.3)
[2020-09-20 05:37] LABS: MD NO
[2020-09-20] MEDS ORDERED: HEPARIN 5,000 UNITS/ML, 1ML ONE (05:57)
[2020-09-20] MEDS ORDERED: CARVEDILOL 12.5 MG TABLET ONE (05:57)
[2020-09-20] MEDS ORDERED: CARVEDILOL 12.5 MG TABLET PO SCH (06:00)
[2020-09-20] MEDS: HEPARIN 5,000 UNITS/ML, 1ML SQ SCH ×4 (06:00→20:53)
--- NOTE | 2020-09-20 06:07 | NUR ---
PT REFUSED HEPARIN SQ THIS AM D/T NOSEBLEED, PT DOES NOT HAVE A NOSE BLEED AT THIS TIME BUT IS BLOWING NOSE FREQUENTLY DURING NIGHT
--- NOTE | 2020-09-20 07:09 | NUR ---
BEDSIDE REPORT FROM [place].
--- NOTE | 2020-09-20 07:15 | NUR ---
REPORT TO TELE 2
[2020-09-20] MEDS: ISOSORBIDE DINITRATE 20 MG TABLET PO SCH ×3 (09:00→20:47)
[2020-09-20] MEDS: INSULIN GLARGINE 100 UNITS/ML, PEN SQ-INSULIN SCH (09:00)
[2020-09-20] MEDS ORDERED: ISOSORBIDE DINITRATE 10 MG TABLET ONE ×2 (09:38→16:58)
[2020-09-20] MEDS: LOSARTAN 50MG TABLET PO SCH ×2 (09:54→20:48)
[2020-09-20] MEDS: ASPIRIN 81 MG TABLET EC PO SCH (09:54)
[2020-09-20] MEDS: ASCORBIC ACID 500 MG TABLET PO SCH ×2 (09:54→20:47)
[2020-09-20] MEDS: ZINC SULFATE 220 MG CAPSULE PO SCH (09:54)
[2020-09-20] MEDS: CHOLECALCIFEROL 5,000u TAB PO SCH (09:54)
[2020-09-20] MEDS: DOCUSATE 100 MG CAPSULE PO PRN (09:54)
[2020-09-20] MEDS: OMEPRAZOLE 10 MG CAPSULE.DR PO SCH (09:54)
[2020-09-20] MEDS: AMLODIPINE 10 MG TAB PO SCH (09:55)
[2020-09-20] MEDS: CLOPIDOGREL 75 MG TABLET PO SCH (09:55)
[2020-09-20 10:32] LABS: RAPID INFLUENZA A Negative (Negative); RAPID INFLUENZA B Negative (Negative)
[2020-09-20 14:22] VITALS: BP 126/69
[2020-09-20] MEDS ORDERED: ARANESP 40 MCG/ML **ESRD SQ SCH (14:30)
[2020-09-20] MEDS: CARVEDILOL 12.5 MG TABLET PO SCH (17:10)
[2020-09-20] MEDS: SEVELAMER CARBONATE 800MG TAB PO SCH (17:10)
[2020-09-20 18:54] VITALS: BP 119/62
[2020-09-20] MEDS: INSULIN LISPRO 100 UNITS/ML, PEN SQ-INSULIN SCH (20:49)
[2020-09-20] MEDS ORDERED: ATORVASTATIN 20 MG TABLET PO SCH (21:00)
[2020-09-21 01:39] VITALS: BP 125/69
[2020-09-21] MEDS: DOCUSATE 100 MG CAPSULE PO PRN ×2 (02:15→12:55)
[2020-09-21] MEDS: ACETAMINOPHEN 325 MG TABLET PO PRN ×2 (02:33→13:33)
[2020-09-21 05:33] VITALS: BP 119/63
[2020-09-21] MEDS: HEPARIN 5,000 UNITS/ML, 1ML SQ SCH ×2 (05:37→14:45)
[2020-09-21] MEDS: CARVEDILOL 12.5 MG TABLET PO SCH (05:37)
[2020-09-21 06:30] LABS: BASOPHILS % (AUTO) 0 % (0-1); EOSINOPHILS % (AUTO) 0 % (1-7); LYMPHOCYTES % (AUTO) 17 % (22-44); MEAN CORPUSCULAR HEMOGLOBIN 33.3 pg (27.5-34.5); MEAN CORPUSCULAR HGB CONC 34.1 g/dL (33.2-36.2); MEAN PLATELET VOLUME 9.5 fL (7.4-10.4); MONOCYTES % (AUTO) 7 % (2-9); NEUTROPHILS % (AUTO) 76 % (42-75); PLATELET COUNT 221 x10^3/uL (130-400); RED BLOOD COUNT 2.71 x10^6/uL (4.38-5.82); RED CELL DISTRIBUTION WIDTH 14.4 % (9.4-14.8)
[2020-09-21 06:39] VITALS: BP 119/56
[2020-09-21 06:40] LABS: ALBUMIN 3.4 g/dL (3.4-5.0); ANION GAP 17 mmol/L (5-15); CALCIUM 8.8 mg/dL (8.5-10.1); CHLORIDE 93 mmol/L (98-107)
[2020-09-21 06:55] LABS: MD NO
[2020-09-21] MEDS: SEVELAMER CARBONATE 800MG TAB PO SCH (08:21)
[2020-09-21] MEDS: ASCORBIC ACID 500 MG TABLET PO SCH (08:24)
[2020-09-21] MEDS: CHOLECALCIFEROL 5,000u TAB PO SCH (08:24)
[2020-09-21] MEDS: OMEPRAZOLE 10 MG CAPSULE.DR PO SCH (08:24)
[2020-09-21] MEDS: ASPIRIN 81 MG TABLET EC PO SCH (08:24)
[2020-09-21] MEDS: CLOPIDOGREL 75 MG TABLET PO SCH (08:25)
[2020-09-21] MEDS: ZINC SULFATE 220 MG CAPSULE PO SCH (08:25)
[2020-09-21] MEDS: INSULIN LISPRO 100 UNITS/ML, PEN SQ-INSULIN SCH ×2 (08:26→11:19)
[2020-09-21] MEDS: INSULIN GLARGINE 100 UNITS/ML, PEN SQ-INSULIN SCH (08:29)
[2020-09-21 12:45] VITALS: BP 131/74
[2020-09-21] MEDS: AMLODIPINE 10 MG TAB PO SCH (12:56)
[2020-09-21] MEDS: ISOSORBIDE DINITRATE 20 MG TABLET PO SCH (12:56)
[2020-09-21] MEDS: LOSARTAN 50MG TABLET PO SCH (12:56)
[2020-09-21] MEDS ORDERED: CHOL10003 PO (13:12)
[2020-09-21] MEDS ORDERED: ASCO500C10 PO (13:12)
[2020-09-21] MEDS ORDERED: ZINC220C7 PO (13:12)
[2020-09-21] MEDS ORDERED: SEVE800T8 PO (13:12)
[2020-09-21] MEDS ORDERED: SEVELAMER CARBONATE 800MG TAB PO SCH (17:00)
== END 2020-09-21 15:20 | disposition home or self-care (01) | DRG 137 ==
LOC: ED 18:14 → EDIP 19:54 → 4WST 09-20 08:20
PROVIDERS: ADMIT Family Medicine; ATTEND Family Medicine
DX: U07.1 COVID-19 (principal); D63.1 Anemia in chronic kidney disease; E10.22 Type 1 diabetes mellitus with diabetic chronic kidney disease; E10.69 Type 1 diabetes mellitus with other specified complication; E78.5 Hyperlipidemia, unspecified; E83.39 Other disorders of phosphorus metabolism; E87.5 Hyperkalemia; E87.2 Acidosis; E87.1 Hypo-osmolality and hyponatremia; I12.0 Hypertensive chronic kidney disease with stage 5 chronic kidney disease or end stage renal disease; J06.9 Acute upper respiratory infection, unspecified; K21.9 Gastro-esophageal reflux disease without esophagitis; N18.6 End stage renal disease; Z79.4 Long term (current) use of insulin; Z80.0 Family history of malignant neoplasm of digestive organs; Z83.3 Family history of diabetes mellitus; Z86.73 Personal history of transient ischemic attack (TIA), and cerebral infarction without residual deficits; Z87.891 Personal history of nicotine dependence; Z99.2 Dependence on renal dialysis
CPT/HCPCS: 36415; 71045; 80048; 80053; 80069; 82550; 82728; 82962; 83615; 83735; 84100; 84145; 85025; 85379; 85384; 85610; 85651; 85730; 86140; 87081; 87400; 87880; 90935; 93005; 99285; G0378; J0882; J1644; J0360; J1815; U0003